=== PATIENT | male | born 2000 | race Caucasian/White ===

== ENCOUNTER 2024-07-04 09:35 | Emergency (ER) | payer OTHER, SELFPAY ==
--- NOTE | ~2024-07-04 | XR_ITS ---
EXAMINATION: XR elbow LT min 3V DATE: 07/04/2024 10:04 INDICATION: Left elbow pain and decreased range of motion post fall TECHNIQUE: Anteroposterior, two oblique and lateral views of the left elbow were obtained. COMPARISON: None. FINDINGS: Alignment is normal. There appears be subtle nondisplaced intra-articular fracture only a small porti on of the head of the left radius on a couple of the images. Left elbow joint effusion with displacem ent of the anterior fat pad. Soft tissues are otherwise unremarkable. IMPRESSION: 1. Left elbow joint effusion with suggestion of a subtle nondisplaced intra-articular fracture at the head of the left radius. Reviewed, dictated and finalized at location A. IMPRESSION: 1. Left elbow joint effusion with suggestion of a subtle nondisplaced intra-art icular fracture at the head of the left radius.
--- NOTE | 2024-07-04 09:50 | ED.UPPEXIN ---
HPI - Extremity Injury (Upper) General Chief Complaint: Extremity Injury, Upper Stated Complaint: L ARM INJURY Time Seen by Provider: 07/04/24 09:50 Source: patient Mode of arrival: ambulatory Limitations: no limitations History of Present Illness HPI narrative: 24-year-old male presents with complaint of pain and swelling to left elbow. Yesterday while at work tripped and fell on outstretched left arm. Did not hit head. Reports decreased range of motion to left elbow. All systems reviewed and negative except as noted above. Related Data Home Medications ?Medication ?Instructions ?Recorded ?Confirmed ?Last Taken ?Type No Home Medications 07/04/24 07/04/24 Unknown History Allergies Allergy/AdvReac Type Severity Reaction Status Date / Time No Known Allergies Allergy Verified 07/04/24 11:11 Review of Systems Review of Systems: CONSTITUTIONAL: Denies fever, chills, or sweats. EYES: Denies visual changes, redness, or discharge. ENT: Denies rhinorrhea, congestion, sore throat, or otalgia. CARDIOVASCULAR: Denies chest pain, palpitations, or edema. RESPIRATORY: Denies cough or dyspnea. GASTROINTESTINAL: Denies abdominal pain, nausea, vomiting, or diarrhea. GENITOURINARY: Denies dysuria or hematuria. SKIN: Denies rash or itching. MUSCULOSKELETAL: Denies back pain or myalgia. Reports pain and swelling to left elbow NEUROLOGIC: Denies headache, numbness, or weakness. PSYCHIATRIC: Denies anxiety or depression. All other systems reviewed are negative, except as documented in HPI. PMFSH Comments At time of signature, agree with nursing past medical, surgical, social and family history. There is no relevant family history pertinent to the presenting complaint. Exam Narrative: GENERAL: This is a well-nourished, well-developed patient, in no apparent distress. HEAD: normocephalic, atraumatic. EYES: PERRL. Sclera clear/white. Vision is grossly intact. EARS: External ears normal NOSE: External nose normal NECK: Neck supple, non-tender without lymphadenopathy, masses or thyromegaly. CARDIOVASCULAR: Regular rate and rhythm without murmurs, gallops, or rubs. RESPIRATORY: Clear to auscultation. Breath sounds equal bilaterally. No wheezes, rales, or rhonchi. SKIN: warm, Dry, intact with no suspicious lesions or rash, good texture and turgor. NEURO: awake, alert, and oriented to person, place and time. There were no obvious focal neurologic abnormalities. EXTREMITIES: Swelling to left elbow, decreased flexion. Tenderness to radial aspect. Distal neurovascularly intact Course Course Level of Care: Express Care Visit Vital Signs Vital signs: Vital Signs Temperature 36.8 C 07/04/24 09:51 Pulse Rate 81 07/04/24 09:51 Respiratory Rate 16 07/04/24 09:51 Blood Pressure 131/74 07/04/24 09:51 Pulse Oximetry 100 07/04/24 09:51 Temperature 36.8 C 07/04/24 09:51 Pulse Rate 81 07/04/24 09:51 Respiratory Rate 16 07/04/24 09:51 Blood Pressure 131/74 07/04/24 09:51 Pulse Oximetry 100 07/04/24 09:51 Reviewed MDM - Extremity Injury (Upper) MDM Narrative Medical decision making narrative: Discussed x-ray results with patient. Placed in a sling. Refer to orthopedics for follow-up. Patient well-appearing, nontoxic. Imaging Data My impression: Agree with radiologist Radiologist's impression: EXAMINATION: XR elbow LT min 3V DATE: 07/04/2024 10:04 INDICATION: Left elbow pain and decreased range of motion post fall TECHNIQUE: Anteroposterior, two oblique and lateral views of the left elbow were obtained. COMPARISON: None. FINDINGS: Alignment is normal. There appears be subtle nondisplaced intra-articular fracture only a small portion of the head of the left radius on a couple of the images. Left elbow joint effusion with displacement of the anterior fat pad. Soft tissues are otherwise unremarkable. IMPRESSION: 1. Left elbow joint effusion with suggestion of a subtle nondisplaced intra-articular fracture at the head of the left radius. Discharge Plan Discharge Clinical Impression: Effusion of elbow joint, left Closed fracture of head of left radius Qualifiers: Encounter type: initial encounter Fracture alignment: nondisplaced Qualified Code(s): S52.125A - Nondisplaced fracture of head of left radius, initial encounter for closed fracture Patient Disposition: Home Condition: Stable Instructions: Elbow Fracture (ED) Additional Instructions: The x-ray of your left elbow shows a subtle nondisplaced fracture to your radial bone. Take ibuprofen or Tylenol every 6-8 hours as needed for pain. Elevate when at rest. Schedule follow-up appointment with lead sustainability specialist. Patient Language: [place]er Prescriptions: No Action No Home Medications Follow-up/Referrals: Jose Cruz,Jr [Other] Kashmir Loera MD [Physician] - (Follow-up with lead sustainability specialist for fracture care) Stand Alone Forms: Work/School Release IP Time of Disposition: 10:29
[2024-07-04 09:51] VITALS: BP 131/74; PULSE 81; RESP 16; TEMP 36.8; O2SAT 100
== END 2024-07-04 10:31 | disposition home or self-care (01) ==
PROVIDERS: Emergency Provider Nurse Practitioner Family
DX: M25.422 Effusion, left elbow (principal); S52.125A Nondisplaced fracture of head of left radius, initial encounter for closed fracture; W01.0XXA Fall on same level from slipping, tripping and stumbling without subsequent striking against object, initial encounter; Y99.0 Civilian activity done for income or pay
CPT/HCPCS: 73080; 99203; A4565; G0463